=== PATIENT | female | born 1990 | race Caucasian/White ===

== ENCOUNTER 2017-02-01 11:23 | Emergency (ER) | payer OTHER, SELFPAY ==
[~2017-02-01] VITALS: Ht 160 cm; Wt 64.0 kg
[~2017-02-01 11:23] MED LIST: NOCURR
[2017-02-01] MEDS ORDERED: ACETAMINOPHEN 325 MG TABLET PO ONE (12:15)
[2017-02-01] MEDS ORDERED: ONDANSETRON HCL 4 MG TABLET PO ONE (12:15)
[2017-02-01 12:22] VITALS: BP 116/86
== END 2017-02-01 13:39 | disposition home or self-care (01) ==
LOC: EMS 11:24
DX: R11.2 Nausea with vomiting, unspecified (principal); R19.7 Diarrhea, unspecified
CPT/HCPCS: 99283; Q0162

== ENCOUNTER 2022-07-07 09:49 | Emergency (ER) | payer OTHER ==
[~2022-07-07] VITALS: Ht 160 cm; Wt 67.3 kg
[2022-07-07] MEDS ORDERED: birth control PO (09:54)
[2022-07-07 12:00] LABS: COVID AG,FIA SOURCE NASAL SWAB
[2022-07-07] MEDS ORDERED: DESO1TAB92 PO (12:26)
[2022-07-07 12:56] VITALS: BP 123/74
== END 2022-07-07 12:57 | disposition home or self-care (01) ==
LOC: EMS 10:21
DX: Z20.822 Contact with and (suspected) exposure to COVID-19 (principal); Z90.89 Acquired absence of other organs
CPT/HCPCS: 99283